=== PATIENT | male | born 1980 | race Caucasian/White ===

== ENCOUNTER 2024-12-23 17:21 | Emergency (ER) | payer OTHER ==
[~2024-12-23] VITALS: Ht 182.9 cm; Wt 93.7 kg
[2024-12-23] MEDS ORDERED: VANCOMYCIN HCL1 GM IV (17:53)
[2024-12-23] MEDS ORDERED: CONSTULOSE10 GM/15 M PO (17:53)
[2024-12-23] MEDS ORDERED: OXYCODONE HCL5 MG PO (17:54)
[2024-12-23] MEDS ORDERED: PIPERACILLIN/TAZOBACTAM 3.375 GM VIAL ONE (18:04)
[2024-12-23] MEDS ORDERED: LACTATED RINGER S IV PRN (18:15)
[2024-12-23] MEDS ORDERED: PIPERACILLIN/TAZOBACTAM 3.375 GM in SODIUM CHLORIDE 0.9% 100 ML IV ONE (18:15)
[2024-12-23 18:18] LABS: EOSINOPHILS 0.4 % (0-6); PLATELET COUNT 414 K/uL (140-440)
[2024-12-23 18:21] LABS: BASOPHILS 0.2 % (0-2); HEMATOCRIT 36.9 % (35.0-50.0); HEMOGLOBIN 12.9 g/dL (12.0-18.0); LYMPHOCYTES 5.6 % (24-44); MCH 30.9 (27-36); MCHC 34.9 g/dl (30-36); MCV 88.4 fl (81-99); MONOCYTES 5.5 % (0-12); NEUTROPHILS 88.3 % (39-80); RBC 4.18 M/ul (4.3-5.7); RDW 14.4 (10.5-15.0)
[2024-12-23 18:30] LABS: PARTIAL THROMBOPLASTIN TIME 30.3 Sec (22.9-41.3)
[2024-12-23 18:31] LABS: INR 1.15 (0.80-1.30); PROTIME 14.7 Sec (11.2-14.2)
[2024-12-23 18:35] LABS: ALBUMIN 2.4 g/dL (3.4-5.0); ALBUMIN/GLOBULIN RATIO 0.57 (1.1-2.4); ANION GAP 13.7 (7-21); BUN/CREATININE RATIO 12.6 (6.0-28.6); CALCIUM 8.7 mg/dL (8.5-10.1); CREATININE, SERUM 1.19 mg/dL (0.70-1.30); POTASSIUM 3.7 mmol/L (3.5-5.1); PROTEIN, TOTAL 6.6 g/dL (6.4-8.2)
[2024-12-23 18:42] LABS: LACTIC ACID, BLOOD 2.5 mmol/L (0.4-2.0)
[2024-12-23] MEDS ORDERED: VANCOMYCIN HCL 2,500 MG in DEXTROSE 5% 500 ML IV ONE (19:15)
[2024-12-23] MEDS ORDERED: DEXTROSE 5% 500 ML IV ONE (19:25)
[2024-12-23] MEDS ORDERED: LACTATED RINGER'S 1,000 ML IV SCH (20:15)
[2024-12-23 20:55] LABS: BILIRUBIN, URINE POSITIVE (negative); BLOOD/HGB, URINE MODERATE (Negative); KETONE, URINE SMALL (Negative); LEUK ESTERASE, URINE NEGATIVE (negative); NITRITE, URINE NEGATIVE (negative); PH, URINE 5.5 (5-7)
[2024-12-23 20:59] LABS: EPITHELIAL CELLS, URINE NONE SEEN /lpf (0-1+); RED BLOOD CELLS, URINE 0-1 /hpf (0-5); WHITE BLOOD CELLS, URINE 0-1 /HPF (0-5)
[2024-12-23 21:00] LABS: BACTERIA, URINE NONE SEEN /hpf (negative); CASTS, URINE NONE SEEN \\lpf; COLLECTION TYPE, URINE CLEAN CATCH; CRYSTALS, URINE NONE SEEN (0-1+); REFLEX CULTURE, URINE No (No)
[2024-12-23] MEDS ORDERED: HYDROmorphone HCL 1 MG/ML SYR IV PRN (21:00)
[2024-12-23 21:10] LABS: AMPHETAMINES, URINE NEGATIVE (NEGATIVE); BARBITURATES, URINE NEGATIVE (NEGATIVE); BENZODIAZEPINE, URINE NEGATIVE (NEGATIVE); BUPRENORPHINE, URINE NEGATIVE (NEGATIVE); CANNABINOID, URINE NEGATIVE (NEGATIVE); COCAINE, URINE NEGATIVE (NEGATIVE); ECSTASY, URINE NEGATIVE (NEGATIVE); FENTANYL, URINE NEGATIVE (NEGATIVE); METHADONE, URINE NEGATIVE (NEGATIVE); OPIATES, URINE POSITIVE (NEGATIVE); PHENCYCLIDINE, URINE NEGATIVE (NEGATIVE)
[2024-12-23 21:20] LABS: OXYCODONE, URINE POSITIVE (NEGATIVE)
[2024-12-23 22:16] VITALS: BP 117/80
--- NOTE | 2024-12-24 19:43 | EKG ---
[facility] [address] [facility] [place], [place] [address] Signed Sinus tachycardia Otherwise normal ECG No previous ECGs available Confirmed by Ryan Ramirez MD ([id number]) on 12/24/2024 7:43:04 PM Electronically Signed By: RYAN RAMIREZ MD 12/24/241942 PATIENT NAME: JANET SAVAGE Electrocardiogram DATE OF : 80 PHYSICIAN: RYAN RAMIREZ MD REPORT #: [id number] REPORT IS CONFIDENTIAL AND NOT TO BE RELEASED WITHOUT AUTHORIZATION
[2024-12-25 04:11] LABS: PROCALCITONIN 2.24 ng/mL (())
== END 2024-12-23 22:40 | disposition short-term general hospital (02) ==
LOC: ED 17:21
PROVIDERS: Emergency Medicine; Internal Medicine
DX: M72.6 Necrotizing fasciitis (principal); Z79.899 Other long term (current) drug therapy
CPT/HCPCS: 36415; 51701; 71260; 74177; 80053; 80307; 81001; 83605; 85025; 85610; 85651; 85730; 86140; 93005; 93010; 99285-25; J1171; J2543; J3370; J7060; J7121; Q9967